=== PATIENT | male | born 1990 | race Caucasian/White ===

== ENCOUNTER 2018-06-21 15:28 | Emergency (ER) | payer SELFPAY ==
[~2018-06-21] VITALS: Ht 170.2 cm; Wt 72.5 kg
[~2018-06-21 15:28] MED LIST: ACET325T33 PO; CETI10CA PO; CLIN300C10 PO; FLUT9.9S NASAL; IBUP-1542 PO; NPH10OT RIGHT EAR; PRED20TA PO
[2018-06-21 16:11] VITALS: BP 181/84; PULSE 111; RESP 18; Ht 170.2 cm; Wt 72.5 kg
== END 2018-06-21 21:58 | disposition left against medical advice (07) ==
LOC: E/R 15:28
DX: Z53.21 Procedure and treatment not carried out due to patient leaving prior to being seen by health care provider (principal)